=== PATIENT | female | born 1985 | race Caucasian/White ===

== ENCOUNTER 2019-03-14 05:44 | Emergency (ER) | payer MEDICAID, OTHER ==
[~2019-03-14] VITALS: Ht 165.1 cm; Wt 107.0 kg
[~2019-03-14 05:44] MED LIST: ASPI1TAB8
[2019-03-14] MEDS ORDERED: PREDNISONE 20MG TABLET PO ONE (06:30)
[2019-03-14] MEDS ORDERED: AMLODIPINE 5MG TABLET PO ONE (06:30)
[2019-03-14 08:36] VITALS: BP 168/85
== END 2019-03-14 08:30 | disposition home or self-care (01) ==
LOC: ER 05:44
DX: J03.90 Acute tonsillitis, unspecified (principal); I10 Essential (primary) hypertension; R05 Cough; F12.10 Cannabis abuse, uncomplicated
CPT/HCPCS: 87070; 87430; 99283; J7512

== ENCOUNTER 2022-12-27 08:53 | Emergency (ER) | payer MEDICAID, OTHER ==
[~2022-12-27] VITALS: Ht 165.1 cm; Wt 132.0 kg
[2022-12-27 09:06] VITALS: BP 177/119; PULSE 131; RESP 20; TEMP 99; O2SAT 95
[2022-12-27] MEDS ORDERED: AMOX1TAB16 MT (10:08)
[2022-12-27] MEDS ORDERED: P20 PO (10:09)
[2022-12-27] MEDS ORDERED: ALBU6.7H3 INH (10:09)
== END 2022-12-27 10:39 | disposition home or self-care (01) ==
LOC: ER 08:53
DX: J06.9 Acute upper respiratory infection, unspecified (principal); F12.10 Cannabis abuse, uncomplicated; I10 Essential (primary) hypertension
CPT/HCPCS: 71045; 99283

== ENCOUNTER 2023-09-18 20:55 | Emergency (ER) | payer OTHER ==
[~2023-09-18] VITALS: Ht 165.1 cm; Wt 137.0 kg
[~2023-09-18 20:55] MED LIST changes: +ALBU6.7H3 INH; +AMOX1TAB16 MT; +P20 PO
[2023-09-18 21:19] VITALS: TEMP 98.5; O2SAT 100
[2023-09-18] MEDS ORDERED: CIPHCO LEFT EAR (22:23)
[2023-09-18 22:43] VITALS: BP 190/119; PULSE 119; RESP 18
[2023-09-18] MEDS: KETOROLAC 30MG/ML VIAL IV ONE (22:43)
== END 2023-09-18 23:46 | disposition home or self-care (01) ==
LOC: ER 20:55
DX: H92.02 Otalgia, left ear (principal); I10 Essential (primary) hypertension; F12.10 Cannabis abuse, uncomplicated; Z98.890 Other specified postprocedural states
CPT/HCPCS: 99283; 96374; J1885

== ENCOUNTER 2024-01-20 10:55 | Emergency (ER) | payer MEDICAID, OTHER ==
[~2024-01-20] VITALS: Ht 165.1 cm; Wt 127.9 kg
[~2024-01-20 10:55] MED LIST changes: +CIPHCO LEFT EAR
[2024-01-20 10:59] VITALS: O2SAT 94
[2024-01-20 11:27] LABS: BASOPHILS % 0.4 % (0.0-2.0); EOSINOPHILS % 1.9 % (0.0-5.0); HEMATOCRIT. 38.7 % (36.0-48.0); HEMOGLOBIN. 12.8 g/dL (12.0-16.0); LYMPHOCYTES % 19.2 % (20.0-50.0); MEAN CORPUSCULAR HEMOGLOBIN 27.3 pg (28.0-32.0); MEAN CORPUSCULAR VOLUME 82.8 fL (81.0-99.0); MEAN PLATELET VOLUME 8.8 fl (7.4-10.4); MONOCYTES % 6.5 % (2.0-8.0); PLATELET 204 x1000/uL (130-400); RED BLOOD CELL COUNT 4.68 mill/uL (4.2-5.4); RED CELL DISTRIBUTION WIDTH 14.9 % (11.6-14.6); WHITE BLOOD COUNT 8.4 x1000/uL (4.5-11.0)
[2024-01-20 11:38] LABS: CHLORIDE 106 mEq/L (98-107); POTASSIUM 3.9 mEq/L (3.5-5.1); SODIUM 137 mEq/L (136-145)
[2024-01-20 11:39] LABS: CALCIUM 9.2 mg/dL (8.7-10.4); CARBON DIOXIDE 27 mEq/L (21-32)
[2024-01-20 11:44] LABS: CREATININE 0.8 mg/dL (0.6-1.0); GLUCOSE 142 mg/dL (70-105); UREA NITROGEN BLOOD 12 mg/dL (9-23)
[2024-01-20 11:45] LABS: TROPONIN I HIGH SENSITIVITY 5 ng/L (3.0-34)
[2024-01-20 11:55] LABS: HCG SCREEN NEGATIVE
[2024-01-20 12:21] LABS: D-DIMER 0.45 mg/L FEU (<0.50); INR 0.9; PARTIAL THROMBOPLASTIN TIME 27.4 sec (23.4-31.0); PROTHROMBIN TIME 10.3 sec (9.6-11.0)
[2024-01-20] MEDS: KETOROLAC 30MG/ML VIAL IV ONE (12:24)
[2024-01-20] MEDS: SODIUM CHLORIDE 0.9% 1,000 ML IV ONE (12:24)
[2024-01-20 13:30] VITALS: TEMP 36.83628
[2024-01-20 14:58] VITALS: BP 132/75; PULSE 105; RESP 15; O2SAT 98
== END 2024-01-20 15:16 | disposition home or self-care (01) ==
LOC: ER 10:55
DX: R00.2 Palpitations (principal); E11.9 Type 2 diabetes mellitus without complications; I10 Essential (primary) hypertension; J45.901 Unspecified asthma with (acute) exacerbation; F12.90 Cannabis use, unspecified, uncomplicated; Z98.890 Other specified postprocedural states
CPT/HCPCS: 80048; 84703; 83880; 85025; 85379; 85610; 85730; 84484; 36415; 71045; 93005; 96361; 96374; 99285; J1885; J7030; Z7610 ×3